=== PATIENT | male | born 1980 | race Caucasian/White ===

== ENCOUNTER 2024-08-02 06:02 | Day surgery (SDC) | payer OTHER ==
[2024-08-02] MEDS ORDERED: Lactated Ringers 1,000 ML IV ONE (06:19)
[2024-08-02] MEDS: Lactated Ringers 1,000 ML IV SCH (06:25)
[2024-08-02 06:31] VITALS: RESP 14
[2024-08-02] MEDS ORDERED: Versed 2 MG/2 ML Injection ONE (07:46)
[2024-08-02] MEDS ORDERED: DIPRIVAN 200 MG/20 ML IV ONE ×2 (08:05→08:14)
[2024-08-02] MEDS ORDERED: Xylocaine-Mpf 2% 5 Ml Vial ONE (08:05)
[2024-08-02] MEDS ORDERED: DEXMEDETOMIDINE 80 MCG/20ML-NS IV ONE (08:11)
[2024-08-02] MEDS ORDERED: SUBLIMAZE 100 MCG/2 ML ONE (08:17)
[2024-08-02] MEDS ORDERED: Ephedrine Sulfate 50 MG/ML ONE (08:23)
[2024-08-02 08:52] VITALS: TEMP 98.9
[2024-08-02 09:03] VITALS: BP 109/56; PULSE 74; O2SAT 97
--- NOTE | 2024-08-03 10:12 | OP ---
SURGERY DATE/TIME: 08/02/2024 [id number] PREOPERATIVE DIAGNOSIS: Screening exam. POSTOPERATIVE DIAGNOSIS: Normal colon. PROCEDURE: Colonoscopy. SURGEON: Jesse Wislon MD. ANESTHESIA: Medications were given by the anesthesia department. INDICATIONS: The patient is a 44-year-old white male patient presenting now for a screening colonoscopy. He was apprised of the risks of the procedure including the risk of perforation, phlebitis, untoward reaction to medication, bleeding, and missed lesions. The patient verbalized his understanding and desired to have the procedure performed. DESCRIPTION OF PROCEDURE AND FINDINGS: Patient was given medication by the anesthesia department. He had continuous pulse oximetry, ECG monitoring, and intermittent blood pressure monitoring during the examination. He was placed in the left lateral decubitus position. Digital rectal examination was performed and revealed normal anal sphincter tone, no masses, and normal prostate. A flexible Olympus videocolonoscope was used to intubate the rectum. A view of the colon was developed sequentially to the cecum. Upon insertion and withdrawal, including retroflexion in the rectum, no mucosal lesions were encountered. The scope was removed from the patient who tolerated the procedure well and was sent back to outpatient recovery in good condition. The prep was noted to be fair to good.
== END 2024-08-02 09:05 | disposition home or self-care (01) ==
LOC: SDC 06:02
PROVIDERS: ATTEND Family Medicine
DX: Z12.11 Encounter for screening for malignant neoplasm of colon (principal)
CPT/HCPCS: J2250; J2704; J3010